=== PATIENT | male | born 1955 | race Caucasian/White ===

== ENCOUNTER 2016-11-13 12:52 | Emergency (ER) | payer BC ==
[2016-11-13 12:59] VITALS: BP 127/83
[2016-11-13] MEDS ORDERED: Lidocaine 2% PF* 10 ML AMP INJ ONE (13:35)
[2016-11-13] MEDS ORDERED: Bupivacaine 0.25% SDV* 30 ML INJ ONE (13:36)
[2016-11-13] MEDS ORDERED: Lidocaine 2% PF * 5 ML VIAL INJ ONE (13:39)
--- NOTE | 2016-11-13 13:43 | UC ---
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 he is right handed Td up to date - History Of Current Complaint Chief Complaint: UCLaceration Stated Complaint: FINGER LAC Time Seen by Provider: 11/13/16 13:30 Hx Obtained From: Patient Onset/Duration: Sudden Onset Severity Initially: Moderate Severity Currently: Moderate Pain Intensity: 6 Pain Scale Used: 0-10 Numeric Character Of Pain: Throbbing Aggravating Factor(s): Movement Alleviating: Nothing Associated Signs And Symptoms: Positive: Swelling Related History: Dominant Hand Right - Allergies/Home Medications Allergies/Adverse Reactions: Allergies Allergy/AdvReac Type Severity Reaction Status Date / Time Niacin [From Niaspan] Allergy Itching Verified 02/15/15 07:53 PMH/Surg Hx/FS Hx/Imm Hx Previously Healthy: Yes Cardiovascular History: Other Other Cardiovascular History: valve replacement Other History Of: Anticoagulant Therapy - COUMADIN - Surgical History Surgical History: Yes Surgery Procedure, Year, and Place: 2000 AND 2002 3 CARDIAC STENT PLACEMENT, [facility]. 2004 BYPASS WITH MITRAL VALVE PROSTHETIC (RUBBER BAND)- [facility]. 2009 MITRAL VALVE REPLACED - [facility]. 3 ROTATOR CUFF REPAIRS RIGHT SHOULDER,- [facility]. 2010 COLONOSCOPY, total hip left, right knee replacement;. LUMPECTOMY REMOVED FROM LEFT HAND, [facility] [place]. 2013 LEFT HIP REPLACEMENT, [facility]. RIGHT TKA - Family History Known Family History: Positive: Hypertension, Diabetes - father - Social History Alcohol Use: Weekly Alcohol Amount: "a few beers" Substance Use Type: None Smoking Status (MU): Heavy Every Day Tobacco Smoker Amount Used/How Often: 1 ppd Household Exposure Type: Cigarettes - Immunization History Most Recent Influenza Vaccination: 2013 Most Recent Tetanus Shot: within 5 yrs Most Recent Pneumonia Vaccination: WITH IN LAST 10 YEARS Review of Systems Constitutional: Negative Skin: Negative Eyes: Negative ENT: Negative Respiratory: Negative Cardiovascular: Negative Gastrointestinal: Negative Genitourinary: Negative Motor: Negative Neurovascular: Negative Musculoskeletal: Negative Neurological: Negative Psychological: Negative All Other Systems Reviewed And Are Negative: Yes Physical Exam Triage Information Reviewed: Yes Appearance: Well-Appearing, No Pain Distress, Well-Nourished Vital Signs: Initial Vital Signs Temp 98.8 F 11/13/16 12:53 Pulse 81 11/13/16 12:53 Resp 18 07/27/17 12:53 BP 127/83 11/13/16 12:53 Pulse Ox 100 11/13/16 12:53 Vital Signs Reviewed: Yes Eyes: Positive: Conjunctiva Clear ENT: Positive: Hearing grossly normal. Negative: Nasal congestion, Nasal drainage, Tonsillar exudate, Trismus Neck: Positive: Supple, Nontender, No Lymphadenopathy Respiratory: Positive: Lungs clear, Normal breath sounds, No respiratory distress Cardiovascular: Positive: RRR, No Murmur Musculoskeletal: Positive: Edema @ Neurological: Positive: Alert Psychological Exam: Normal Skin Exam: Other - see image Procedures - Laceration/Wound Repair 1 Location: Other - finger Description: Irregular Anesthesia: Digital, 2.0%, Lido, Marcaine Length, Depth and Shape: 1.8 cm/curvilinear, 2mm wide/3 mm deep Laceration/Wound Explored: contaminated - grease/metal shavings, foreign body removed - muliple cleaning with guaze Closure: Single Layer Suture Type: Nylon Number of Sutures: 6 - 5-0 nylon Layer Closure?: No Sterile Dressing Applied?: Yes Hand/Wrist Course/Dx - Differential Dx/Diagnosis Provider Diagnoses: left ring finger laceration/crushing injury Discharge - Discharge Plan Condition: Stable Disposition: HOME Prescriptions: Cephalexin CAP* [Keflex CAP*] 500 mg PO QID #20 cap HYDROcodone/ACETAMIN 5-325 MG* [[place] 5-325 TAB*] 1 tab PO Q4H PRN #12 tab MDD 6 PRN Reason: Pain - Severe Patient Education Materials: Finger Laceration (ED) Referrals: Talat Zapata MD [Primary Care Provider] - Additional Instructions: keep dressing on until recheck elevate elevate elevate please recheck here in 2 days to make sure it doesn't look infected sutures out in about 10 days Images Hands: 1 - lac
--- NOTE | 2016-11-13 13:58 | RAD ---
HISTORY: Crush injury to the fourth digit of the left hand COMPARISONS: None VIEWS: 3, Frontal, lateral, and oblique views of the fourth digit of the right hand FINDINGS: BONE DENSITY: Normal. BONES: There is no displaced fracture. 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 ALIGNMENT: There is no dislocation. SOFT TISSUES: There is minimal radiopaque debris along the volar aspect of the tuft of the distal phalanx of the fourth digit OTHER FINDINGS: None. IMPRESSION: NO ACUTE OSSEOUS INJURY. MINIMAL RADIOPAQUE DEBRIS IN THE SOFT TISSUES ALONG THE TUFT OF THE DISTAL PHALANX OF THE FOURTH DIGIT. IF SYMPTOMS PERSIST, RECOMMEND REPEAT IMAGING.
== END 2016-11-13 14:45 | disposition home or self-care (01) ==
LOC: UCEAST 12:52
DX: S61.225A Laceration with foreign body of left ring finger without damage to nail, initial encounter (principal); W22.8XXA Striking against or struck by other objects, initial encounter; Y93.9 Activity, unspecified; Y92.9 Unspecified place or not applicable; Y99.9 Unspecified external cause status; Z95.2 Presence of prosthetic heart valve; Z79.01 Long term (current) use of anticoagulants; Z72.0 Tobacco use
CPT/HCPCS: 12001; 12031; 73140; 99212; G0463; J2001

== ENCOUNTER 2016-11-15 10:31 | Emergency (ER) | payer BC ==
[2016-11-15 11:04] VITALS: BP 126/67
--- NOTE | 2016-11-15 11:30 | UC ---
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 Pt reports wound was suture here at the cleaning. He is taking ABX as directed. Denies fever, swelling, SOB, chest pain, N/V/D. Pt has not other complains. - History Of Current Complaint Chief Complaint: UCWounds Stated Complaint: RECHECK FINGER INJURY Time Seen by Provider: 11/15/16 11:08 Hx Obtained From: Patient Onset/Duration: Sudden Onset, Lasting Days, Still Present Severity: Mild Pain Intensity: 2 - w/ movement Pain Scale Used: 0-10 Numeric - Allergies/Home Medications Allergies/Adverse Reactions: Allergies Allergy/AdvReac Type Severity Reaction Status Date / Time Niacin [From Niaspan] Allergy Itching Verified 11/15/16 11:01 PMH/Surg Hx/FS Hx/Imm Hx Previously Healthy: Yes Other History Of: Anticoagulant Therapy - COUMADIN - Surgical History Surgical History: Yes Surgery Procedure, Year, and Place: 2000 AND 2002 3 CARDIAC STENT PLACEMENT, [facility]. 2004 BYPASS WITH MITRAL VALVE PROSTHETIC (RUBBER BAND)- [facility]. 2009 MITRAL VALVE REPLACED - [facility]. 3 ROTATOR CUFF REPAIRS RIGHT SHOULDER,- [facility]. 2010 COLONOSCOPY, total hip left, right knee replacement;. [place] [facility] [place] [facility] [place] - Family History Known Family History: Positive: Hypertension, Diabetes - father - Social History Occupation: Employed Full-time Lives: With Family Alcohol Use: Weekly Alcohol Amount: "a few beers" Substance Use Type: None Smoking Status (MU): Heavy Every Day Tobacco Smoker Amount Used/How Often: 1 ppd Household Exposure Type: Cigarettes - Immunization History Most Recent Influenza Vaccination: 2013 Most Recent Tetanus Shot: within 5 yrs Most Recent Pneumonia Vaccination: WITH IN LAST 10 YEARS Review of Systems Constitutional: Negative Skin: Other - LF # 4 finger w/ wound s/p injure Eyes: Negative ENT: Negative Respiratory: Negative Cardiovascular: Negative Gastrointestinal: Negative Genitourinary: Negative Motor: Negative Neurovascular: Negative Musculoskeletal: Negative Neurological: Negative Psychological: Negative All Other Systems Reviewed And Are Negative: Yes Physical Exam Triage Information Reviewed: Yes Appearance: Well-Appearing, No Pain Distress, Well-Nourished Vital Signs: Initial Vital Signs Temp 98.4 F 11/15/16 11:02 Pulse 68 11/15/16 11:02 Resp 14 11/15/16 11:02 BP 126/67 11/15/16 11:02 Pulse Ox 98 11/15/16 11:02 Vital Signs Reviewed: Yes Eye Exam: Normal ENT Exam: Normal ENT: Positive: Normal ENT inspection, Hearing grossly normal, Pharynx normal, TMs normal Dental Exam: Normal Neck exam: Normal Neck: Positive: Supple, Nontender, No Lymphadenopathy Respiratory Exam: Normal Respiratory: Positive: Chest non-tender, Lungs clear, Normal breath sounds Cardiovascular Exam: Normal Cardiovascular: Positive: RRR, No Murmur, Pulses Normal Abdominal Exam: Normal Abdomen Description: Positive: Nontender, No Organomegaly, Soft Bowel Sounds: Positive: Present Musculoskeletal Exam: Normal Musculoskeletal: Positive: Strength Intact, ROM Intact, No Edema Neurological Exam: Normal Psychological Exam: Normal Skin: Positive: significant lesion(s) - Left #4 phalanx with avulsion laceration w/ sutures, healing well, mild swelling and tender to palpation, no erythema observed. FROM of phalanx, positive sensation, capillary refill and pulses over the Left extremity WNL. 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 Hx obtained. Wound f/u no signs of infection , healing well. Pt taking ABX. Wound was cleaned, some paper strips placed on the side that was not sitched, bacitracin applied and sterile dressing applied by the nurse. Pt advised to keep cleand and avoid increase flexion of finger to avoid swelling. To take Tylenol otc prn for pain. Pt understood and agreed. - Differential Dx - Laceration/Wound Differential Diagnoses: Cellulitis, Healing Wound Provider Diagnoses: 1- wound recheck f/u Discharge - Discharge Plan Condition: Stable Disposition: HOME Patient Education Materials: Wound Healing and Your Diet (ED) Referrals: Talat Zapata MD [Primary Care Provider] - 7 Days Additional Instructions: Please continue taking antibiotics and take tylenol PO q4-6hrs prn to decrease swelling and pain. Keep wound clean and dry and avoid to much movement with your finger. If redness develops w/ swelling and fever please return to the urgent care for further evaluation and treatment. Otherwise f/u with your PCP for future removal in 8-10 days.
== END 2016-11-15 11:40 | disposition home or self-care (01) ==
LOC: UCEAST 10:31
DX: Z48.89 Encounter for other specified surgical aftercare (principal); F17.210 Nicotine dependence, cigarettes, uncomplicated; Z95.5 Presence of coronary angioplasty implant and graft; Z95.2 Presence of prosthetic heart valve; Z96.642 Presence of left artificial hip joint; Z96.651 Presence of right artificial knee joint; Z79.01 Long term (current) use of anticoagulants
CPT/HCPCS: 99212; G0463

== ENCOUNTER 2016-11-23 10:03 | Emergency (ER) | payer BC ==
[2016-11-23 10:40] VITALS: BP 116/62
--- NOTE | 2016-11-23 10:45 | UC ---
HPI Wound/Suture Re-check - HPI Summary HPI Summary: 61 y/o male presents to the urgent care for suture removal on his LF ring finger placed on 11/13/2016. 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 Pt reports wound healed well and he finished full course of antibiotics. Pt denies fever, SOB, chest pain. Pt has not other complains. - History Of Current Complaint Chief Complaint: UCSkin Stated Complaint: SUTURE REMOVAL Time Seen by Provider: 11/23/16 10:44 Hx Obtained From: Patient Onset/Duration: Sudden Onset, Lasting Days, Still Present Surgical Site: Left #4th phalanx Severity: Moderate Pain Intensity: 0 Pain Scale Used: 0-10 Numeric - Allergies/Home Medications Allergies/Adverse Reactions: Allergies Allergy/AdvReac Type Severity Reaction Status Date / Time Niacin [From Niaspan] Allergy Itching Verified 11/23/16 10:40 PMH/Surg Hx/FS Hx/Imm Hx Previously Healthy: Yes Other History Of: Anticoagulant Therapy - COUMADIN - Surgical History Surgical History: Yes Surgery Procedure, Year, and Place: 2000 AND 2002 3 CARDIAC STENT PLACEMENT, [facility]. 2004 BYPASS WITH MITRAL VALVE PROSTHETIC (RUBBER BAND)- [facility]. 2009 MITRAL VALVE REPLACED - [facility]. 3 ROTATOR CUFF REPAIRS RIGHT SHOULDER,- [facility]. 2010 COLONOSCOPY, total hip left, right knee replacement;. LUMPECTOMY REMOVED FROM LEFT HAND, [facility] [place]. 2013 LEFT HIP REPLACEMENT, [facility] [place]. RIGHT TKA - Family History Known Family History: Positive: Hypertension, Diabetes - father - Social History Occupation: Employed Full-time Lives: With Family Alcohol Use: Weekly Alcohol Amount: "a few beers" Substance Use Type: None Smoking Status (MU): Heavy Every Day Tobacco Smoker Amount Used/How Often: 1 ppd Household Exposure Type: Cigarettes - Immunization History Most Recent Influenza Vaccination: 2013 Most Recent Tetanus Shot: within 5 yrs Most Recent Pneumonia Vaccination: WITH IN LAST 10 YEARS Review of Systems Constitutional: Negative Skin: Other - suture removal of laceration repair of #4 phalanx Eyes: Negative ENT: Negative Respiratory: Negative Cardiovascular: Negative Gastrointestinal: Negative Genitourinary: Negative Motor: Negative Neurovascular: Negative Musculoskeletal: Negative Neurological: Negative Psychological: Negative All Other Systems Reviewed And Are Negative: Yes Physical Exam Triage Information Reviewed: Yes Appearance: Well-Appearing, No Pain Distress, Well-Nourished Vital Signs: Initial Vital Signs Temp 97.8 F 11/23/16 10:38 Pulse 76 11/23/16 10:38 Resp 18 11/23/16 10:38 BP 116/62 11/23/16 10:38 Pulse Ox 100 11/23/16 10:38 Vital Signs Reviewed: Yes Eye Exam: Normal ENT Exam: Normal ENT: Positive: Normal ENT inspection, Hearing grossly normal, Pharynx normal, TMs normal Neck exam: Normal Neck: Positive: Supple, Nontender, No Lymphadenopathy Respiratory Exam: Normal Respiratory: Positive: Chest non-tender, Lungs clear, Normal breath sounds Cardiovascular Exam: Normal Cardiovascular: Positive: RRR, No Murmur, Pulses Normal Abdominal Exam: Normal Musculoskeletal Exam: Normal Neurological Exam: Normal Psychological Exam: Normal Skin: Positive: significant lesion(s) - laceration repair of the LF #4 phalanx healing well. w/ [address] no erythema or swelling observed. Course/Dx - Course Course Of Treatment: 61 y/o male presents to the urgent care for suture removal on his LF ring finger placed on 11/13/2016. 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 Pt reports wound healed well and he finished full course of antibiotics. Pt denies fever, SOB, chest pain. Hx obtained. Suture removal: 6 sutures removed w/o any difficulty from the LF #4 distal phalanx. Pt tolerated well procedure. Bacitracin applied and clean sterile dressing placed. - Differential Dx - Laceration/Wound Differential Diagnoses: Cellulitis, Healing Wound, Suture Removal Provider Diagnoses: 1- Suture removal of Left #4 phalanx Discharge - Discharge Plan Condition: Stable Disposition: HOME Patient Education Materials: Acute Wound Care (ED) Referrals: Talat Zapata MD [Primary Care Provider] - If Needed Additional Instructions: Please continue to keep wound dry and clean. If your develop any redness, swelling or fever over your finger please return to the urgent care or f/u w/up with your PCP.
== END 2016-11-23 11:06 | disposition home or self-care (01) ==
LOC: UCEAST 10:03
DX: S61.215D Laceration without foreign body of left ring finger without damage to nail, subsequent encounter (principal); W22.8XXD Striking against or struck by other objects, subsequent encounter; Z79.01 Long term (current) use of anticoagulants; Z72.0 Tobacco use
CPT/HCPCS: 99211; G0463

== ENCOUNTER 2017-09-01 01:20 | Emergency (ER) | payer BC ==
[2017-09-01] MEDS ORDERED: Ketorolac INJ* 30 MG/ML 1 ML VIAL IV PUSH ONE (01:41)
[2017-09-01] MEDS ORDERED: oxyCODONE/Acetamin 5/325 MG* TAB PO ONE (01:41)
[2017-09-01] MEDS ORDERED: LORazepam TAB(*) 1 MG PO ONE (01:42)
[2017-09-01 04:28] VITALS: BP 124/79
--- NOTE | 2017-09-01 07:49 | RAD ---
HISTORY: Left hip pain COMPARISONS: May 03, 2012 VIEWS: 3, Frontal view of the pelvis with frontal and frog-leg views of the left hip FINDINGS: BONE DENSITY: Normal. BONES: The patient is status post bilateral hip arthroplasty. On the left, there is no hardware failure or osteolysis. JOINTS: The patient is status post left hip arthroplasty. ALIGNMENT: There is no dislocation. SOFT TISSUES: Unremarkable. OTHER FINDINGS: Degenerative changes are noted of the lumbar spine. IMPRESSION: STATUS POST BILATERAL HIP ARTHROPLASTY. NO ACUTE OSSEOUS INJURY. IF SYMPTOMS PERSIST, RECOMMEND REPEAT IMAGING.
--- NOTE | 2017-09-01 19:05 | ED ---
Yonatan Forbes Stephanie, scribed for Kelvin Cobian MD on 09/01/17 at 0144 . Lower Extremity - HPI Summary HPI Summary: The pt is a 62 y/o M presenting to the ED with c/o L hip/groin pain that began earlier today. The pt states he mowed the lawn today but his pain began after lying down to sleep. He denies knee pain. - History of Current Complaint Chief Complaint: EDHipPelvisInjury Stated Complaint: HIP PAIN Time Seen by Provider: 09/01/17 01:32 Hx Obtained From: Patient Mechanism Of Injury: Unknown Onset of Pain: Hours Onset/Duration: Still Present Severity Currently: Moderate Pain Intensity: 8 Pain Scale Used: 0-10 Numeric Timing: Intermittent Location: Is Discrete @ - L hip/groin Character Of Pain: Sharp Associated Signs And Symptoms: Negative: Knee Pain Aggravating Factor(s): Movement Alleviating Factor(s): Rest Able to Bear Weight: Yes - Allergies/Home Medications Allergies/Adverse Reactions: Allergies Allergy/AdvReac Type Severity Reaction Status Date / Time niacin AdvReac Intermediate Rash And Verified 09/01/17 01:26 Itching PMH/Surg Hx/FS Hx/Imm Hx Endocrine/Hematology History: Reports: Hx Anticoagulant Therapy - COUMADIN Denies: Hx Diabetes, Hx Systemic Lupus Erythematosus, Hx Thyroid Disease Cardiovascular History: Reports: Hx Coronary Artery Disease, Hx Hypercholesterolemia, Hx Hypertension, Hx Valvular Heart Disease - MITRAL VALVE PROSTETIC-2003, REPLACEMENT 2008, Other Cardiovascular Problems/Disorders - see above history surgeries Denies: Hx Congestive Heart Failure, Hx Pacemaker/ICD Respiratory History: Reports: Other Respiratory Problems/Disorders - SMOKER Denies: Hx Asthma, Hx Chronic Obstructive Pulmonary Disease (COPD) GI History: Reports: Hx Gastroesophageal Reflux Disease - ON MEDICATION FOR Denies: Hx Ulcer, Other GI Disorders History: Denies: Hx Dialysis, Hx Renal Disease Musculoskeletal History: Reports: Hx Arthritis - LEFT HIP, WITH REPLACEMENT, RIGHT KNEE, Other Musculoskeletal History - surgeries above Denies: Hx Rheumatoid Arthritis Sensory History: Reports: Hx Cataracts - SMALL ON ONE EYE, Hx Contacts or Glasses - GLASSES Denies: Hx Hearing Aid Opthamlomology History: Reports: Hx Cataracts - SMALL ON ONE EYE, Hx Contacts or Glasses - GLASSES Neurological History: Denies: Hx Dementia, Hx Seizures Psychiatric History: Denies: Hx Substance Abuse - Cancer History Hx Chemotherapy: No - Surgical History Surgery Procedure, Year, and Place: 2000 AND 2002 3 CARDIAC STENT PLACEMENT, [facility]. 2004 BYPASS WITH MITRAL VALVE PROSTHETIC (RUBBER BAND)- [facility]. 2009 [facility]AL VAL[facility]ACED [facility]. 3 ROTATOR CUFF REPAIRS RIGHT SHOULDER,- [facility]. 2009 COLONOSCOPY, total hip left, right knee replacement;. LUMPECTOMY REMOVED FROM LEFT HAND, [facility]. 2012 LEFT HIP REPLACEMENT, [facility]. RIGHT TKA Hx Anesthesia Reactions: No - Immunization History Date of Tetanus Vaccine: Up to date Date of Influenza Vaccine: Fall 2012 Infectious Disease History: No Infectious Disease History: Denies: Hx Clostridium Difficile, Hx Hepatitis, Hx Human Immunodeficiency Virus (HIV), Hx of Known/Suspected MRSA, Hx Shingles, Hx Tuberculosis, Hx Known/ Suspected VRE, Hx Known/Suspected VRSA, History Other Infectious Disease, Traveled Outside the in Last 30 Days - Family History Known Family History: Positive: Hypertension, Diabetes - father - Social History Occupation: Retired Lives: With Family Alcohol Use: Weekly Alcohol Amount: "a few beers" Hx Substance Use: No Substance Use Type: Reports: None Hx Tobacco Use: Yes Smoking Status (MU): Former Smoker Amount Used/How Often: 1 ppd Review of Systems Negative: Fever Musculoskeletal: Negative - L knee pain Positive: Other - L hip/groin pain Negative: Slurred Speech All Other Systems Reviewed And Are Negative: Yes Physical Exam - Summary Physical Exam Summary: Appearance: Well-appearing, Well-nourished, lying in bed comfortably Skin: Warm, dry, no obvious rash Eyes: sclera anicteric, no conjunctiva pallor ENT: mucous membranes moist, pharynx appears normal Neck: Supple, nontender Respiratory: Clear to auscultation, no signs of respiratory distress Cardiovascular: Normal S1, S2. No murmurs. Normal distal pulses in tibial and radial bilaterally. Abdomen: Soft, nontender, normal active bowel sounds present Musculoskeletal: Strength/ROM Intact, no tenderness over L trochanter, tenderness over L groin muscles Neurological: A&Ox3, awake and alert, mentation is normal, speech is fluent and appropriate Psychiatric: affect is normal, does not appear anxious or depressed Triage Information Reviewed: Yes Vital Signs On Initial Exam: Initial Vitals Temp Pulse Resp BP Pulse Ox 97.3 F 89 16 133/74 95 09/01/17 01:23 09/01/17 01:23 09/01/17 01:23 09/01/17 01:23 09/01/17 01:23 Vital Signs Reviewed: Yes Diagnostics - Vital Signs Vital Signs Temp Pulse Resp BP Pulse Ox 09/01/17 01:23 97.3 F 89 16 133/74 95 - Laboratory Lab Statement: Any lab studies that have been ordered have been reviewed, and results considered in the medical decision making process. - Radiology Hip/Pelvis XRay reveals Xray Interpretation: No Acute Changes Radiology Interpretation Completed By: ED Physician - Negative report. Re-Evaluation - Re-Evaluation First Eval Re-Evaluation Time: 03:44 Change: Unchanged - ED physician discussed negative xray results with the pt. ED physician discussed plan of discharge with the pt and the pt understands and agrees with the plan of discharge. Lower Extremity Course/Dx - Diagnoses Provider Diagnoses: Ilio-inguinal strain Discharge - Sign-Out/Discharge Documenting (check all that apply): Discharge/Admit/Transfer - Discharge Plan Condition: Improved Disposition: HOME Patient Education Materials: Groin Strain (ED) Referrals: Talat Zapata MD [Primary Care Provider] - - Billing Disposition and Condition Condition: IMPROVED Disposition: HOME The documentation as recorded by the Yonatan brewster Stephanie accurately reflects the service I personally performed and the decisions made by , Kelvin Cobian MD.
== END 2017-09-01 04:25 | disposition home or self-care (01) ==
LOC: ED 01:20
DX: S76.912A Strain of unspecified muscles, fascia and tendons at thigh level, left thigh, initial encounter (principal); X58.XXXA Exposure to other specified factors, initial encounter; Y93.H9 Activity, other involving exterior property and land maintenance, building and construction; Y92.9 Unspecified place or not applicable; I25.10 Atherosclerotic heart disease of native coronary artery without angina pectoris; I10 Essential (primary) hypertension; Z95.5 Presence of coronary angioplasty implant and graft; Z79.01 Long term (current) use of anticoagulants; Z95.2 Presence of prosthetic heart valve; E78.00 Pure hypercholesterolemia, unspecified; K21.9 Gastro-esophageal reflux disease without esophagitis; Z96.642 Presence of left artificial hip joint; Z96.651 Presence of right artificial knee joint; Z87.891 Personal history of nicotine dependence; Z88.8 Allergy status to other drugs, medicaments and biological substances
CPT/HCPCS: 96374; 99283; A9270-GY; J1885

== ENCOUNTER 2017-09-02 19:36 | Emergency (ER) | payer BC ==
[2017-09-02] MEDS ORDERED: Diazepam TAB(*) 5 MG PO ONE (21:18)
--- NOTE | 2017-09-02 21:28 | ED ---
Lower Extremity - HPI Summary HPI Summary: Patient seen here yesterday for left hip/groin pain returns for worsening of same symptoms. States pain has spread to left gluteus and is now radiating down left leg with numbness. Pain worse with hip flexion, no change with hip extension. Patient states he cannot ambulate due to pain. Denies fever, incontinence, urinary retention, loss of sensation or function, abdominal pain, new trauma. Diagnosed yesterday with groin pull after mowing the lawn. Was not given prescription for pain medication as patient already had prescription for pain medication. States he took an oxycodone of unknown dosage at 5:30 PM today with no relief. X-ray of hip and pelvis yesterday negative for acute process. Denies new trauma, fever, loss of sensation. - History of Current Complaint Chief Complaint: EDBackInjuryPain Stated Complaint: LT SIDE FLANK PAIN Time Seen by Provider: 09/02/17 20:34 Hx Obtained From: Patient Onset/Duration: Days Severity Initially: Mild Severity Currently: Severe Pain Intensity: 10 Pain Scale Used: 0-10 Numeric Timing: Constant Character Of Pain: Sharp Associated Signs And Symptoms: Positive: Negative Aggravating Factor(s): Standing, Ambulation, Movement, Weight Bearing Alleviating Factor(s): Rest - Allergies/Home Medications Allergies/Adverse Reactions: Allergies Allergy/AdvReac Type Severity Reaction Status Date / Time niacin AdvReac Intermediate Rash And Verified 09/02/17 20:20 Itching PMH/Surg Hx/FS Hx/Imm Hx Endocrine/Hematology History: Reports: Hx Anticoagulant Therapy - COUMADIN Denies: Hx Diabetes, Hx Systemic Lupus Erythematosus, Hx Thyroid Disease Cardiovascular History: Reports: Hx Coronary Artery Disease, Hx Hypercholesterolemia, Hx Hypertension, Hx Valvular Heart Disease - MITRAL VALVE PROSTETIC-2003, REPLACEMENT 2008, Other Cardiovascular Problems/Disorders - see above history surgeries Denies: Hx Congestive Heart Failure, Hx Pacemaker/ICD Respiratory History: Reports: Other Respiratory Problems/Disorders - SMOKER Denies: Hx Asthma, Hx Chronic Obstructive Pulmonary Disease (COPD) GI History: Reports: Hx Gastroesophageal Reflux Disease - ON MEDICATION FOR Denies: Hx Ulcer, Other GI Disorders History: Denies: Hx Dialysis, Hx Renal Disease Musculoskeletal History: Reports: Hx Arthritis - LEFT HIP, WITH REPLACEMENT, RIGHT KNEE, Other Musculoskeletal History - surgeries above Denies: Hx Rheumatoid Arthritis Sensory History: Reports: Hx Cataracts - SMALL ON ONE EYE, Hx Contacts or Glasses - GLASSES Denies: Hx Hearing Aid Opthamlomology History: Reports: Hx Cataracts - SMALL ON ONE EYE, Hx Contacts or Glasses - GLASSES Neurological History: Denies: Hx Dementia, Hx Seizures Psychiatric History: Denies: Hx Substance Abuse - Cancer History Hx Chemotherapy: No - Surgical History Surgery Procedure, Year, and Place: 2000 AND 2002 3 CARDIAC STENT PLACEMENT, [facility]. 2003 BYPASS WITH MITRAL VALVE PROSTHETIC (RUBBER BAND)- [facility]. 2009 MITRAL VALVE REPLACED - [facility]. 3 ROTATOR CUFF REPAIRS RIGHT SHOULDER,- [facility]. 2009 COLONOSCOPY, total hip left, right knee replacement;. LUMPECTOMY REMOVED FROM LEFT HAND, [facility]. 2012 LEFT HIP REPLACEMENT, [facility]. RIGHT TKA Hx Anesthesia Reactions: No - Immunization History Date of Tetanus Vaccine: Up to date Date of Influenza Vaccine: Fall 2012 Infectious Disease History: No Infectious Disease History: Denies: Hx Clostridium Difficile, Hx Hepatitis, Hx Human Immunodeficiency Virus (HIV), Hx of Known/Suspected MRSA, Hx Shingles, Hx Tuberculosis, Hx Known/ Suspected VRE, Hx Known/Suspected VRSA, History Other Infectious Disease, Traveled Outside the [place] in Last 30 Days - Family History Known Family History: Positive: Hypertension, Diabetes - father - Social History Alcohol Use: Weekly Alcohol Amount: "a few beers" Hx Substance Use: No Substance Use Type: Reports: Prescribed Hx Tobacco Use: Yes Smoking Status (MU): Former Smoker Amount Used/How Often: 1 ppd Review of Systems Constitutional: Negative Eyes: Negative ENT: Negative Cardiovascular: Negative Respiratory: Negative Gastrointestinal: Negative Genitourinary: Negative Positive: Myalgia, Other Skin: Negative Neurological: Negative Psychological: Normal All Other Systems Reviewed And Are Negative: Yes Physical Exam - Summary Physical Exam Summary: Tenderness to palpation in left inguinal area. No pain with palpation of left gluteus, left lower back, left thigh. No evidence of ecchymosis, swelling, deformity, erythema, extra warmth to left hip joint or knee. Pain is left inguinal area with hip flexion. No pain in left leg or left hip with hip extension, knee flexion or extension, foot dorsiflexion or plantar flexion. PMS intact distally Triage Information Reviewed: Yes Vital Signs On Initial Exam: Initial Vitals Temp Pulse Resp BP Pulse Ox 97.4 F 93 22 142/79 100 09/02/17 19:41 09/02/17 19:41 09/02/17 19:41 09/02/17 19:41 09/02/17 19:41 Vital Signs Reviewed: Yes Appearance: Positive: Well-Appearing Skin: Positive: Warm Head/Face: Positive: Normal Head/Face Inspection Eyes: Positive: Normal Neck: Positive: Supple Respiratory/Lung Sounds: Positive: Clear to Auscultation Cardiovascular: Positive: Normal Abdomen Description: Positive: Nontender Musculoskeletal: Positive: Normal Neurological: Positive: Normal Psychiatric: Positive: Normal AVPU Assessment: Alert - Kelsey Coma Scale Best Eye Response: 4 - Spontaneous Best Motor Response: 6 - Obeys Commands Best Verbal Response: 5 - Oriented Coma Scale Total: 15 Diagnostics - Vital Signs Vital Signs Temp Pulse Resp BP Pulse Ox 09/02/17 19:41 97.4 F 93 22 142/79 100 - Laboratory Lab Statement: Any lab studies that have been ordered have been reviewed, and results considered in the medical decision making process. - Radiology hip Xray Interpretation: No Acute Changes Radiology Interpretation Completed By: Radiologist Re-Evaluation - Re-Evaluation 1 Re-Evaluation Time: 22:49 Change: Improved Comment: Patient states pain much improved with Valium 5mg Lower Extremity Course/Dx - Course Course Of Treatment: Vital signs within normal limits. Imaging unremarkable. Much improvement with Valium 5 mg by mouth. Will be given prescription for same. Patient agrees with plan - Diagnoses Provider Diagnoses: Muscle strain Discharge - Sign-Out/Discharge Documenting (check all that apply): Discharge/Admit/Transfer - Discharge Plan Condition: Stable Disposition: HOME Patient Education Materials: Muscle Strain (ED), Groin Strain (ED) Referrals: Talat Zapata MD [Primary Care Provider] - Additional Instructions: Rest groin muscle. Follow-up with primary care. Return to the ED for any new or worsening symptoms - Billing Disposition and Condition Condition: STABLE Disposition: HOME
--- NOTE | 2017-09-02 21:54 | RAD ---
INDICATION: Left hip pain. Bilateral hip arthroplasty COMPARISON: September 01, 2017 TECHNIQUE: An AP view of the pelvis and AP views of the hip in neutral and abducted position were obtained FINDINGS: Bones: There are no acute bony findings. Joint spaces: There is bilateral hip arthroplasty. The imaged portion of the right hip prosthesis is normal. The completely imaged left hip prosthesis appears normally seated.. SI joints/symphysis: The SI joints and symphysis are intact. Other: None IMPRESSION: LEFT HIP ARTHROPLASTY. NO EVIDENCE OF HARDWARE FAILURE.
[2017-09-02 23:08] VITALS: BP 113/79
== END 2017-09-02 23:05 | disposition home or self-care (01) ==
LOC: ED 19:36
DX: S39.011A Strain of muscle, fascia and tendon of abdomen, initial encounter (principal); X58.XXXA Exposure to other specified factors, initial encounter; Y93.H9 Activity, other involving exterior property and land maintenance, building and construction; Y92.9 Unspecified place or not applicable; Z96.642 Presence of left artificial hip joint; Z87.891 Personal history of nicotine dependence; Z88.8 Allergy status to other drugs, medicaments and biological substances
CPT/HCPCS: 99282; A9270-GY

== ENCOUNTER 2019-07-20 10:53 | Day surgery (SDC) | payer MEDICARE, BC ==
[~2019-07-20 10:53] MED LIST: Buffered Lidocaine 1% SYRIN* 1 ML/SYRINGE INTRADERM ONE; Dexamethasone IV* 4 MG/ML 1 ML (4 MG) IV SLOW PU ONE; Famotidine IV* 10 MG/ML 2 ML (20 mg) IV ONE; Lactated Ringers 1000 ML Bag* 1,000 ML IV SCH
[2019-07-20] MEDS ORDERED: Dexamethasone IV* 4 MG/ML 1 ML (4 MG) ONE (11:11)
[2019-07-20] MEDS ORDERED: Famotidine IV* 10 MG/ML 2 ML (20 mg) ONE (11:11)
[2019-07-20] MEDS ORDERED: Buffered Lidocaine 1% SYRIN* 1 ML/SYRINGE INTRADERM ONE (11:38)
[2019-07-20] MEDS ORDERED: fentaNYL* 50 MCG/ML 2 ML VIAL (100 MCG VIAL) ONE (12:48)
[2019-07-20] MEDS ORDERED: Lidocaine 2% PF * 5 ML VIAL ONE (12:49)
[2019-07-20] MEDS ORDERED: Midazolam* 1 MG/ML 5 ML VIAL (5 MG) ONE (12:49)
[2019-07-20] MEDS ORDERED: Propofol* 10 MG/ML 20 ML BTL ONE (12:49)
[2019-07-20] MEDS ORDERED: Rocuronium* 10 MG/ML VIAL ONE (12:49)
[2019-07-20] MEDS ORDERED: Benzocaine/Butamben/Tetracain (CETACAINE - SINGLE USE) 5 gm TOPICAL ONE (13:20)
[2019-07-20] MEDS ORDERED: Phenylephrine 40 MCG/ML SYRINGE ONE (13:39)
[2019-07-20] MEDS ORDERED: EPHEDrine (Pressors)* 50 MG/ML VIAL ONE (13:43)
[2019-07-20] MEDS ORDERED: Sugammadex * 200 MG/2 ML VIAL IV PUSH ONE (14:42)
--- NOTE | 2019-07-20 15:30 | BRIEFOPN ---
Brief Operative/Procedure Note - Operation Details Pre-Op Diagnosis: PET positive R4 node Post-Op Diagnosis: No evidence of metastatic disease in station-7, R4 Procedures: Bronchoscopy/EBUS- station 7 and R4 Surgeon(s)/Proceduralists: Thais Smith Anesthesia: GA Estimated Blood Loss: None Findings: No metasatatic disease Specimen(s)/Culture(s) Description: FNA from station7, R4 Complications: None
[2019-07-20 15:58] VITALS: BP 104/73
--- NOTE | 2019-07-20 17:20 | PRO ---
BRONCHOSCOPY REPORT: DATE OF PROCEDURE: 07/20/19 PROCEDURE PERFORMED: Bronchoscopy with endobronchial ultrasound-guided fine needle aspiration of mediastinal nodes. ANESTHESIA: General anesthesia. ANESTHESIOLOGIST: Dr. Cameron. DESCRIPTION OF PROCEDURE: Informed consent was obtained from the patient prior to the procedure after all the risks and benefits were thoroughly explained. The patient was intubated with size 8.5 endotracheal tube. Appropriate time- out was agreed on by attending staff prior to the surgery. Flexible Olympus bronchoscope was inserted through ET tube for airway inspection. No endobronchial lesions noted on the left side. Thin secretions noted and were suctioned. Bronchoscope was then advanced into the right bronchial tree. The patient is post surgery of right lung cancer with postsurgical changes noted. No abnormality of the mucosa was noted. Bronchoscope was then advanced further into the mainstem bronchus and no lesions were noted. All airways are patent at that point. Bronchoscope was withdrawn and EBUS bronchoscope was inserted. Station 7 was sampled with 2 passes. Rapid on- site evaluation revealed lymphatic tissue with no malignant cells. L4 was not enlarged. R10 and right hilar nodes were not enlarged. R4 was sampled with 5 passes. Rapid on-site evaluation revealed no malignant cells with lymphatic tissue. Rest of the sample was placed in formalin. The patient was extubated and seen in recovery in optimal condition. The patient tolerated the procedure well. [id number]/[facility] #: [id number] [facility]
== END 2019-07-20 16:00 | disposition home or self-care (01) ==
LOC: OR 10:53
PROVIDERS: ATTEND Internal Medicine
DX: R59.0 Localized enlarged lymph nodes (principal); C34.90 Malignant neoplasm of unspecified part of unspecified bronchus or lung; F17.210 Nicotine dependence, cigarettes, uncomplicated; Z95.1 Presence of aortocoronary bypass graft; Z95.2 Presence of prosthetic heart valve; Z96.643 Presence of artificial hip joint, bilateral; Z95.5 Presence of coronary angioplasty implant and graft; Z79.01 Long term (current) use of anticoagulants; I10 Essential (primary) hypertension; E78.00 Pure hypercholesterolemia, unspecified; I25.10 Atherosclerotic heart disease of native coronary artery without angina pectoris; K21.9 Gastro-esophageal reflux disease without esophagitis; R31.9 Hematuria, unspecified
CPT/HCPCS: 88172; 88173; 88177; 88305; J1100; J2250; J2704; J3010

== ENCOUNTER 2019-08-11 11:16 | Emergency (ER) | payer BC, MEDICARE, OTHER ==
--- NOTE | 2019-08-11 11:21 | ED ---
Respiratory - HPI Summary HPI Summary: 64 y/[facility]. Hx lung CA. Follows with Dr. Prabhakar who called patient today for f/u at which point patient expressed SOB. Reports worsening SOB over a couple weeks. Feels SOB when ambulating across a room. O2 sat drops to 80 when he ambulates. Reports mucus cough. No fevers. No CP. Referred patient to ER for CTA Chest to r/o PE and COVID testing. No hx PE/DVT. No sick contacts. - History of Current Complaint Stated Complaint: SOB PER PT Time Seen by Provider: 08/11/19 11:19 Hx Obtained From: Patient, Other: - Dr. Prabhakar Onset/Duration: Lasting Weeks, Still Present Timing: Constant Aggravating Factor(s): Other - ambulating Alleviating Factor(s): Nothing - Allergy/Home Medications Allergies/Adverse Reactions: Allergies Allergy/AdvReac Type Severity Reaction Status Date / Time niacin AdvReac Intermediate Rash And Verified 08/11/19 12:20 Itching Home Medications: Home Medications Metoprolol Tartrate TAB* [Lopressor TAB*] 0.5 tab PO BID 04/27/12 [History Confirmed 07/20/19] Omeprazole CAP (NF) [Prilosec CAP*] 20 mg PO BEDTIME 04/27/12 [History Confirmed 07/20/19] Rosuvastatin (NF) [Crestor] 40 mg PO BEDTIME 05/02/13 [History Confirmed ] Aspirin EC TAB* [Ecotrin EC Low Dose 81 MG*] 81 mg PO QAM 10/31/13 [History Confirmed 07/20/19] Albuterol 2.5MG/3ML (0.083%)* [Ventolin 2.5 MG/3 ML NEB.ELSY*] 1 vial INH ONCE PRN 07/12/19 [History Confirmed 07/20/19] Albuterol HFA INHALER* [Ventolin HFA Inhaler*] 1 puff INH Q4H PRN 07/12/19 [ History Confirmed 07/20/19] Cefuroxime 500 MG TAB (NF) [Ceftin 500 MG TAB (NF)] 500 mg PO BID 07/12/19 [ History Confirmed 07/20/19] Enoxaparin(*) [Lovenox(*)] 60 mg SUBCUT BID 07/12/19 [History Confirmed 07/20/19 ] Ramipril CAP* [Altace CAP*] 2.5 mg PO BEDTIME 07/12/19 [History Confirmed ] PMH/Surg Hx/FS Hx/Imm Hx Endocrine/Hematology History: Reports: Hx Anticoagulant Therapy - COUMADIN Denies: Hx Diabetes, Hx Thyroid Disease, Hx Anemia Cardiovascular History: Reports: Hx Coronary Artery Disease - HX OF, Hx Hypercholesterolemia, Hx Hypertension - HX OF-ON MEDICATION FOR, Hx Valvular Heart Disease - HX OF-PT REPORTS MITRAL VALVE REPLACED~03/2008 Denies: Hx Congestive Heart Failure, Hx Pacemaker/ICD, Other Cardiovascular Problems/Disorders Respiratory History: Reports: Other Respiratory Problems/Disorders - STOP BANG SCORE=4; JEWELL SCORE: JEWELL INTERMEDIATE RISK Denies: Hx Asthma, Hx Chronic Obstructive Pulmonary Disease (COPD), Hx Sleep Apnea GI History: Reports: Hx Gastroesophageal Reflux Disease - HX OF-ON MEDICATION FOR Denies: Other GI Disorders History: Denies: Other Problems/Disorders Musculoskeletal History: Reports: Hx Arthritis - HX OF-PT REPORTS LEFT HIP, WITH REPLACEMENT, RIGHT KNEE W/ REPLACEMENT Denies: Hx Rheumatoid Arthritis, Other Musculoskeletal History Sensory History: Reports: Hx Contacts or Glasses - GLASSES Opthamlomology History: Reports: Hx Contacts or Glasses - GLASSES Neurological History: Denies: Hx Seizures, Other Neuro Impairments/Disorders - Cancer History Hx Chemotherapy: No - Surgical History Surgical History: Yes Surgery Procedure, Year, and Place: CARDIAC STENT PLACEMENT X3-2000 & 2002-[facility]. 1 VESSEL [id number]. ROTATOR CUFF REPAIRS RIGHT SHOULDER X3-DATES UNKNOWN-[facility]. [id number]. RIGHT TOTAL KNEE [id number]. LUMPECTOMY REMOVED FROM LEFT HAND-DATE UNKNOWN-[facility]. LEFT HIP REPLACEMENT-2014- [facility]. RIGHT UPPER LOBE WEDGE REMOVED-07/2017-[facility] Hx Anesthesia Reactions: No - Immunization History Date of Tetanus Vaccine: Up to date Date of Influenza Vaccine: Fall 2012 Infectious Disease History: Denies: Hx Clostridium Difficile, Hx Hepatitis, Hx Human Immunodeficiency Virus (HIV), Hx of Known/Suspected MRSA, Hx Shingles, Hx Tuberculosis, Hx Known/ Suspected VRE, Hx Known/Suspected VRSA, History Other Infectious Disease - Family History Known Family History: Positive: Hypertension, Diabetes - father - Social History Alcohol Use: Weekly Alcohol Amount: 2 BEERS PER WEEK Hx Substance Use: Yes Substance Use Type: Reports: Prescribed Hx Tobacco Use: Yes Smoking Status (MU): Light Every Day Tobacco Smoker Amount Used/How Often: CURRENT 5-6 CIGARETTES PER DAY X 40+ YRS PRIOR PT REPORTS 1 1/2 PPD Have You Smoked in the Last Year: Yes Review of Systems Negative: Fever Negative: Chest Pain Positive: Shortness Of Breath, Cough All Other Systems Reviewed And Are Negative: Yes Physical Exam - Summary Physical Exam Summary: Constitutional: Well-developed, Well-nourished, Alert. (-) Distressed Skin: Warm, Dry HENT: Normocephalic; Atraumatic Eyes: Conjunctiva normal Neck: Musculoskeletal ROM normal neck. (-) JVD, (-) Stridor, (-) Nuchal rigidity Cardio: Rhythm regular, rate normal, Heart sounds normal; Intact distal pulses; Radial pulses are 2+ and symmetric. (-) Murmur Pulmonary/Chest wall: Effort normal. (-) Respiratory distress, (-) Wheezes, bilateral rhonchi Abd: Soft, (-) tenderness, (-) Distension, (-) Guarding, (-) Rebound Musculoskeletal: (-) Edema Lymph: (-) Cervical adenopathy Neuro: Alert, Oriented x3 Psych: Mood and affect Normal Triage Information Reviewed: Yes Vital Signs Reviewed: Yes Procedures - Sedation Patient Received Moderate/Deep Sedation with Procedure: No Diagnostics - Laboratory Result Diagrams: 08/11/19 11:50 08/11/19 11:50 Lab Statement: Any lab studies that have been ordered have been reviewed, and results considered in the medical decision making process. - CT Chest/Thorax CTA CT Interpretation Completed By: Radiologist - IMPRESSION: NO PULMONARY ARTERIAL FILLING DEFECT TO SUGGEST PULMONARY EMBOLISM. PULMONARY FIBROSIS WITH STABLE PULMONARY NODULARITY. ED physician has reviewed this imaging report. - EKG 1145 Cardiac Rate: NL - 79 BPM EKG Rhythm: Sinus Rhythm Summary of EKG Findings: An EKG at 1145 reveals normal sinus rhythm 79 BPM, nml axis, nml intervals. T wave inversions in 3, V1. No STEMI. No acute changes. ED physician has reviewed and interpreted this EKG. Disposition - Course Course Of Treatment: 64 y/o male w lung cancer and pulm fibrosis p/w SOB and exertional dyspnea. ddx includes worsening of chronic dx, PE, infection. - no PNA on CT or leukocytosis on labs. - d/w oncology who would like CTA chest, COVID test. EKG unremarkable. 92% on RA. CTA w/o PE. COVID pending. Patient to follow up w onc. - Diagnoses Provider Diagnoses: Pulmonary fibrosis, SOB (shortness of breath) - Physician Notifications Discussed Care Of Patient With: Patito Prabhakar - Is aware Time Discussed With Above Provider: 13:35 - Critical Care Time Critical Care Statement: Critical care time is provided exclusive of any time spent performing procedures. Discharge ED - Sign-Out/Discharge Documenting (check all that apply): Patient Departure - Discharge Plan Condition: Stable Disposition: HOME Patient Education Materials: Shortness of Breath (ED) Forms: COVID-19 Tested & Isolation Referrals: Talat Zapata MD [Primary Care Provider] - Additional Instructions: You were seen in the emergency department for shortness of breath. Your CT scan did not show any blood clots. You're Covid test is pending. Please self isolate yourself until your test results are back If any studies were not completed at the time of discharge you will be called with the relevant results. Please follow up with your primary care doctor in next 2-3 days and return to emergency department for worsening or concerning symptoms. It was a pleasure taking care of you today. - Billing Disposition and Condition Condition: STABLE Disposition: Home - Attestation Statements Document Initiated by Ella: Yes Documenting Scribe: Michelle Macedo Provider For Whom Ella is Documenting (Include Credential): Anai Verde MD Scribe Attestation: I, Michelle Macedo, scribed for Anai Verde MD on 08/11/19 at 1344. Scribe Documentation Reviewed: Yes Provider Attestation: The documentation as recorded by the Michelle brewster accurately reflects the service I personally performed and the decisions made by me, Anai Verde MD Status of Scribe Document: Viewed
[2019-08-11 12:14] LABS: ABS Basophils 0.1 10^3/ul (0-0.2); ABS Eosinophils 0.8 10^3/ul (0-0.6); ABS Lymphocytes 1.5 10^3/ul (1.0-4.8); ABS Monocytes 0.9 10^3/ul (0-0.8); ABS Neutrophils 4.3 10^3/ul (1.5-7.7); Eosinophil % 11.2 %; Hematocrit 47 % (42-52); Hemoglobin 16.4 g/dL (14.0-18.0); Lymphocyte % 19.3 %; Mean Corpuscular HGB Conc 35 g/dL (31-36); Mean Corpuscular Hemoglobin 31 pg (27-31); Mean Corpuscular Volume 89 fL (80-94); Mean Platelet Volume 9.3 fL (7.4-10.4); Nucleated Red Blood Cells % 0.2; Platelet Count 199 10^3/uL (150-450); Red Blood Count 5.33 10^6 /uL (4.18-5.48); Red Cell Distribution Width 16 % (10-15); White Blood Count 7.6 10^3/uL (3.5-10.8)
[2019-08-11 12:26] LABS: Albumin 3.9 g/dL (3.2-5.2); BUN/Creatinine Ratio 14.9 (8-20); Calcium 9.4 mg/dL (8.6-10.3); EGFR African American 89.7 (>60); EGFR Non-African American 74.1 (>60); Globulin 3.8 g/dL (2-4); Potassium 4.1 mmol/L (3.5-5.0); Total Bilirubin 1.9 mg/dL (0.2-1.0); Total Protein 7.7 g/dL (6.4-8.9)
[2019-08-11] MEDS ORDERED: Iohexol 350* (CONTRAST) 500 ML MDV IV ONE (12:41)
--- OUTSIDE RECORDS SUMMARY | 2019-08-11 12:58 | XMS REPORT | Continuity of Care Document ---
:1955 External Reference #:[id number] Author Name Thais Smith MD (transmitted by agent of provider Karolina Tee) Address [address], [address] [place] [address] Care Team Providers Name Role Phone Talat Zapata MD - Family Care Team Information [facility] Patito Prabhakar M.D. - Hematology & Care Team Information [facility] Problems Description No Information Available Social History Type Date Description Comments Sex Unknown ETOH Use Occasionally consumes alcohol Tobacco Use Start: Unknown Patient is a current smoker, smokes every day Recreational Drug Use Denies Drug Use Tobacco Use Start: Unknown Heavy tobacco smoker Smoked for 46 (more than 10 years cigarettes/day) Smoking Status Reviewed: 06/21/19 Heavy tobacco smoker Smoked for 46 (more than 10 years cigarettes/day) Exercise Type/Frequency Does not exercise pretty active Allergies, Adverse Reactions, Alerts Active Allergies Reaction Severity Comments Date Niaspan 06/21/2019 Medications Active Medications SIG Qnty Indications Ordering Provider Date Albuterol Sulfate HFA prn Unknown 108(90Base) mcg/Act Aerosol Aspirin 81 1 by mouth every Unknown 81mg Tablets DR day Coumadin 1 tab by mouth Unknown 2.5mg Tablets every day or as directed Metoprolol Tartrate 1/2 by mouth Unknown 25mg twice a day Tablets Nitroglycerin prn Unknown Omeprazole 1 by mouth every Unknown 40mg Capsules DR day Ramipril 1 by mouth every Unknown 2.5mg Capsules day Rosuvastatin Calcium 1 by mouth every Unknown 40mg day Tablets Immunizations Description No Information Available Vital Signs Date Vital Result Comment 06/21/2019 6:36am Height 65 inches 5'5" Weight 138.00 lb Heart Rate 71 /min BP Systolic Sitting 118 mmHg BP Diastolic Sitting 78 mmHg O2 % BldC Oximetry 94 % BMI (Body Mass Index) 23.0 kg/m2 Results Test Acquired Date Facility Test Result H/L Range Note Laboratory test 06/14/2019 [facility] Point of Care 91 mg/dL Normal 70-[address] Glucose [place] [id number] [phone] 1 Television Production Technician: [id number] Procedures Description No Information Available Medical Devices Description No Information Available Encounters Type Date Location Provider Dx Diagnosis Office Visit 06/21/2019 [facility] And Thais Smith, R59.0 Localized 7:00a [facility] Of enlarged lymph Lock Tender Chief Operator nodes C34.90 Malignant neoplasm of unsp part of unsp bronchus or lung F17.210 Nicotine dependence, cigarettes, uncomplicated Assessments Date Code Description Provider 07/01/2019 R59.0 Localized enlarged lymph nodes Thais Smith MD 06/21/2019 R59.0 Localized enlarged lymph nodes Thais Smith MD 06/21/2019 C34.90 Malignant neoplasm of unspecified part of Thais Smith MD unspecified bronchus or lung 06/21/2019 F17.210 Nicotine dependence, cigarettes, uncomplicated Thais Smith MD Plan of Treatment Future Appointment(s):07/20/2019 1:00 pm - Thais Smith MD at [facility]07/29/2019 9:00 am - Thais Smith MD at [facility]06/21/2019 - Thais Smith MDR59.0 Localized enlarged lymph nodesNew Orders:Endobronchial Ultrasound (Ebus), Ordered: 06/21/19Follow up:3 blbsbB23.90 Malignant neoplasm of unspecified part of unspecified bronchus or lungF17.210 Nicotine dependence, cigarettes, uncomplicatedNew Labs:Alpha 1 Antitrypsin Phenotypin, Ordered: 06/21/19New Orders:6 Minute Walk, Ordered: 06/21/19PFTW/Spirometry Vol Pre/Post Bronchdilat Dlco Complete, Ordered: 06/21/19 Functional Status Description No Information Available Mental Status Description No Information Available Referrals Description No Information Available
--- OUTSIDE RECORDS SUMMARY | 2019-08-11 12:58 | XMS REPORT | Continuity of Care Document ---
:1955 External Reference #:[id number] Author Name Thais Smith MD (transmitted by agent of provider Karolina Tee) Address [address], [address] [place] [address] Care Team Providers Name Role Phone Talat Zapata MD - Family Care Team Information Gallery Host Medicine Patito Prabhakar M.D. 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 [address] [place] [address] [phone] PDFReport SEE IMAGE Laboratory test 06/14/2019 [facility] Point of Care 91 mg/dL Normal 70-[address] [place] [address] [phone] 1 SEE RESULT BELOW Name: TYESHAWOLF Akiko : [address]: Thais Smith MD Acct: [id number] Unit: [id number] AGE: 63 Location: OR Re07/20/19 SEX: M Status: [facility] [place] SPEC: [id number] YRN: 07/20/19-[address]: Thais Smith MD REQ: [id number] RECD: 07/20/19 STATUS: SOUT _ ORDERED: FNA-IMG GUID BX/2, CY ADEQ-ADDL P, LEVEL 4/2, CYTO ADEQ-1ST P/2 FINAL DIAGNOSIS 1) Lymph node, station-7, endobronchial Ultrasound guided, fine needle aspiration: -- Benign lymph node. No evidence of metastatic malignancy. 2) Lymph node, R-4, endobronchial Ultrasound guided, fine needle aspiration: -- Benign lymph node. No evidence of metastatic malignancy. A cell block was prepared in the evaluation of this specimen. Smears and cell block reveal similar findings. SPECIMEN(S) RECEIVED 1. LYMPH NODE - STATION-7 ENDOBRONCHIAL US GUIDED FINE NEEDLE ASPIRATION, 2. LYMPH NODE - R-4 ENDOBRONCHIAL US GUIDED FINE NEEDLE ASPIRATION CONTINUED ON NEXT PAGE DEPARTMENT OF PATHOLOGY, [address] [place] [address] Christopher Hall M.D[address] Director [facility] # [id number] CLINICAL HISTORY Adenocarcinoma. IMMEDIATE INTERPRETATION 1) Pass 1-inadequate. Pass 2-adequate. 2) Pass 1 thru 5-adequate. GROSS DESCRIPTION 1) 4- alcohol fixed slides(s) 2- passes Needle rinse in formalin solution for cell block. 2) 13- alcohol fixed slides(s) 5 - passes Needle rinse in formalin solution for cell block. Signed by and Reported on: Christopher Hall MD 06/09 1348 END OF REPORT DEPARTMENT OF PATHOLOGY, [facility] [address] [place] [address] Christopher Hall M.D. Director [facility] # [id number] 2 Imagery Intelligence: [id number] Procedures Date Code Description Status 07/20/2019 28810 Endobronchial Ultrasound =>3 Completed Medical Devices Description No Information Available Encounters Type Date Location Provider Dx Diagnosis Office Visit 06/21/2019 Pulmonology And Thais Smith, R59.0 Localized 7:00a [facility] Of enlarged lymph Wholesale Manager nodes C34.90 Malignant neoplasm of unsp part of unsp bronchus or lung F17.210 Nicotine dependence, cigarettes, uncomplicated Assessments Date Code Description Provider 07/20/2019 R59.0 Localized enlarged lymph nodes Thais Smith MD 07/01/2019 R59.0 Localized enlarged lymph nodes Thais Smith MD 06/21/2019 R59.0 Localized enlarged lymph nodes Thais Smith MD 06/21/2019 C34.90 Malignant neoplasm of unspecified part of Thais Smith MD unspecified bronchus or lung 06/21/2019 F17.210 Nicotine dependence, cigarettes, uncomplicated Thais Smith MD Plan of Treatment 06/21/2019 - Thais Smith, MDR59.0 Localized enlarged lymph nodesFollow up:3 uisoxO72.90 Malignant neoplasm of unspecified part of unspecified bronchus or lungF17.210 Nicotine dependence, cigarettes, uncomplicatedNew Orders:6 Minute Walk, Ordered: 06/21/19PFTW/Spirometry Vol Pre/Post Bronchdilat Dlco Complete, Ordered: 06/21/19 Functional Status Description No Information Available Mental Status Description No Information Available Referrals Description No Information Available
--- OUTSIDE RECORDS SUMMARY | 2019-08-11 12:58 | XMS REPORT | Continuity of Care Document ---
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 Medicine Problems Description No Information Available Social History [...] Result H/L Range Note Laboratory test 06/14/2019 [facility] Point of Care 91 mg/dL Normal 70-100 [address] [place] [address] [phone] 1 Materials Technician: [id number] Procedures Description No Information Available Medical Devices Description No Information Available Encounters Type Date Location Provider Dx Diagnosis Office Visit 06/21/2019 Pulmonology And Thais Smith, R59.0 Localized 7:00a [facility] Of enlarged lymph Shorthand Teacher nodes C34.90 Malignant neoplasm of unsp part of unsp bronchus or lung F17.210 Nicotine dependence, cigarettes, uncomplicated Assessments Date Code Description Provider 06/21/2019 R59.0 Localized enlarged lymph nodes Thais Smith MD 06/21/2019 C34.90 Malignant neoplasm of unspecified part of Thais Smith MD unspecified bronchus or lung 06/21/2019 F17.210 Nicotine dependence, cigarettes, uncomplicated Thais Smith MD Plan of Treatment Future Appointment(s):07/13/2019 9:15 am - Thais Smith MD at [facility]06/21/2019 - Thais Smith, MDR59.0 Localized enlarged lymph nodesNew Orders:Endobronchial Ultrasound (Ebus), Ordered: Follow up:3 ontosE61.90 Malignant neoplasm of unspecified part of unspecified bronchus or lungF17.210 Nicotine dependence, cigarettes, uncomplicatedNew Labs: Alpha 1 Antitrypsin Phenotypin, Ordered: 06/21/19New Orders:6 Minute Walk, Ordered: 06/21/19PFTW/Spirometry Vol Pre/Post Bronchdilat Dlco Complete, Ordered : 06/21/19 Functional Status Description No Information Available Mental Status Description No Information Available Referrals Description No Information Available
[2019-08-11 14:16] VITALS: BP 122/78
== END 2019-08-11 14:15 | disposition home or self-care (01) ==
LOC: ED 11:16
DX: J84.10 Pulmonary fibrosis, unspecified (principal); R06.02 Shortness of breath; Z79.01 Long term (current) use of anticoagulants; I25.10 Atherosclerotic heart disease of native coronary artery without angina pectoris; E78.00 Pure hypercholesterolemia, unspecified; I10 Essential (primary) hypertension; Z95.4 Presence of other heart-valve replacement; Z96.642 Presence of left artificial hip joint; Z96.651 Presence of right artificial knee joint; Z20.828 Contact with and (suspected) exposure to other viral communicable diseases
CPT/HCPCS: 36415; 71275; 80053; 85025; 87635; 93005; 99283; Q9967; U0003